=== PATIENT | female | born 2000 | race Caucasian/White ===

== ENCOUNTER 2021-09-18 03:51 | Inpatient (IN) ==
[2021-09-18 04:44] LABS: Basophils % 0.2 %; Eosinophils # 0.1 K/mcL (0.0-0.6); Eosinophils % 0.3 %; Hematocrit 43.3 % (35.3-44.9); Hemoglobin 13.5 g/dL (11.5-15.4); Immature Granulocytes % 0.5 % (0-4); Lymphocytes # 3.9 K/mcL (0.6-4.6); Lymphocytes % 23.3 %; Mean Corpuscular HGB Conc 31.2 g/dL (31.6-35.5); Mean Corpuscular Hemoglobin 27.2 pg (28.0-33.3); Mean Corpuscular Volume 87.1 fL (83.0-100.0); Mean Platelet Volume 9.7 fL (9.4-12.4); Monocytes # 0.9 K/mcL (0.0-1.3); Monocytes % 5.4 %; Neutrophils # 11.7 K/mcL (1.6-8.9); Platelet Count 450 K/mcL (140-400); Red Blood Count 4.97 M/mcL (3.82-4.97); Red Cell Distribution Width 14.3 % (11.5-14.5); Segmented Neutrophils % 70.3 %; White Blood Count 16.6 K/mcL (4.3-11.1)
[2021-09-18 04:48] LABS: Amphetamine Screen,Urine Negative ng/mL (Cutoff=1000); Barbiturate Screen,Urine Negative ng/mL (Cutoff=200); Benzodiazepines Screen,Urine Negative ng/mL (Cutoff=200); Cannabinoid Screen,Urine Positive ng/mL (Cutoff = 50); Cocaine Screen,Urine Negative ng/mL (Cutoff= 300); Opiate Screen,Urine Negative ng/mL (Cutoff=300); Phencyclidine Screen,Urine Negative ng/mL (Cutoff=25)
[2021-09-18 04:52] LABS: Bacteria,Urine Few per hpf (None-Few); Bilirubin,Urine Negative (Negative); Blood,Urine Moderate (Negative); Clarity,Urine Clear (Clear); Color,Urine Light-Yellow (Yellow); Glucose,Urine (UA) Normal (Normal); Ketones,Urine Negative (Negative); Leukocyte Esterase,Urine Small (Negative); Mucus,Urine Few per lpf (None-Few); Nitrite,Urine Negative (Negative); Protein,Urine 70 mg/dL (Neg-Trace); RBC,Urine 0-3 per hpf (0-3); Specific Gravity,Urine 1.028 (1.010-1.025); Squamous Epithelial Cell,Urine Few per hpf (None-Few); Urobilinogen,Urine Normal (Normal)
[2021-09-18 05:01] LABS: Acetaminophen < 10 mcg/mL (10-20); Alanine Aminotransferase 28 Units/L (7-52); Albumin 4.2 g/dL (3.5-5.7); Albumin/Globulin Ratio 1.2 (1.1-2.2); Alkaline Phosphatase 83 Units/L (34-104); Aspartate Amino Transferase 18 Units/L (13-39); BUN/Creatinine Ratio 18 (6-26); Bilirubin,Indirect 0.2 mg/dL (0.0-1.0); Bilirubin,Total 0.2 mg/dL (0.3-1.0); Blood Urea Nitrogen 16 mg/dL (6-20); Calcium 9.3 mg/dL (8.6-10.3); Carbon Dioxide 25 mEq/L (23-29); Chloride 102 mEq/L (98-107); Ethanol < 10 mg/dL (Less than 10); Globulin 3.5 g/dL (2.4-3.5); Glucose 92 mg/dL (70-105); Osmolality,Calculated 289 (280-300); Potassium 3.8 mEq/L (3.5-5.1); Salicylate < 2.5 mg/dL (15.0-30.0); Sodium 139 mEq/L (136-145); Total Protein 7.7 g/dL (6.4-8.9); eGFR For African Americans > 60 (> 60); eGFR For Non-African Americans > 60 (> 60)
[2021-09-18 10:25] LABS: INR 2.1; Prothrombin Time 23.2 Seconds (9.4-12.1)
[2021-09-18 10:57] LABS: Influenza A PCR Negative (Negative); Influenza B PCR Negative (Negative); Resp. Syncytial Virus PCR Negative (Negative)
[2021-09-18 11:01] LABS: SARS-CoV-2 by PCR (In House) Negative (Negative)
[2021-09-18] MEDS ORDERED: Haloperidol Lactate 5 MG/ML VIAL IM PRN (12:22)
[2021-09-18] MEDS ORDERED: haloperidoL 5 MG TABLET PO PRN (12:22)
[2021-09-18] MEDS ORDERED: Nicotine 14 MG PATCH.TD24 TD PRN (12:22)
[2021-09-18] MEDS ORDERED: traZODone 50 MG TABLET PO PRN (12:22)
[2021-09-18] MEDS ORDERED: MOM Conc 10 ML UD.LIQ PO PRN (12:22)
[2021-09-18] MEDS ORDERED: Mag Hydrox/Al Hydrox/Simeth 30 ML UDC PO PRN (12:22)
[2021-09-18] MEDS ORDERED: Acetaminophen 325 MG TABLET PO PRN (12:22)
[2021-09-18] MEDS ORDERED: *HR* LORazepam 2 MG/ML VIAL IM PRN (12:22)
[2021-09-18] MEDS ORDERED: *HR* LORazepam 1 MG TABLET PO PRN (12:22)
[2021-09-18] MEDS: *HR* Warfarin 10 MG TABLET PO SCH (18:20)
[2021-09-18] MEDS: FLUoxetine 20 MG CAPSULE PO SCH (18:20)
[2021-09-18] MEDS: hydrOXYzine pamoate 25 MG CAPSULE PO PRN (20:58)
[2021-09-18] MEDS: Metoprolol 100 MG TABLET PO SCH (20:58)
[2021-09-19] MEDS: Metoprolol 100 MG TABLET PO SCH ×2 (08:35→20:04)
[2021-09-19] MEDS: *HR* Metformin 500 MG TABLET PO SCH (08:36)
[2021-09-19] MEDS: ARIPiprazole 10 MG TABLET PO SCH (08:36)
[2021-09-19] MEDS: FLUoxetine 20 MG CAPSULE PO SCH (08:39)
[2021-09-19 09:22] LABS: INR 1.8
[2021-09-19] MEDS ORDERED: FLUoxetine 20 MG CAPSULE PO ONE (12:00)
[2021-09-19] MEDS: BuPROPion XL (24 HR) 150 MG TABLET PO SCH (14:09)
[2021-09-19] MEDS ORDERED: *HR* Warfarin 1 MG TABLET PO SCH (18:00)
[2021-09-19] MEDS: *HR* Warfarin 10 MG TABLET PO SCH (18:08)
[2021-09-19 19:53] VITALS: O2SAT 97
[2021-09-19] MEDS: hydrOXYzine pamoate 25 MG CAPSULE PO PRN (20:03)
[2021-09-19] MEDS ORDERED: Melatonin 3 MG TABLET PO SCH (21:00)
[2021-09-20] MEDS: BuPROPion XL (24 HR) 150 MG TABLET PO SCH (08:47)
[2021-09-20] MEDS: *HR* Metformin 500 MG TABLET PO SCH (08:47)
[2021-09-20] MEDS: ARIPiprazole 10 MG TABLET PO SCH (08:47)
[2021-09-20] MEDS: Metoprolol 100 MG TABLET PO SCH (08:48)
[2021-09-20] MEDS ORDERED: FLUoxetine 20 MG CAPSULE PO SCH (09:00)
[2021-09-20 09:33] VITALS: BP 138/83; PULSE 87; TEMP 97.3
== END 2021-09-20 14:00 | disposition home or self-care (01) | DRG 751 ==
LOC: EMEROOARM 03:51 → 1ANU 11:39
PROVIDERS: ADMIT Psychiatry & Neurology Psychiatry; ATTEND Psychiatry & Neurology Psychiatry